=== PATIENT | male | born 1950 | race Caucasian/White ===

== ENCOUNTER → 2016-09-15 | Outpatient (CLI) | payer OTHER ==
[~2016-09-15] MED LIST: ACYC800T PO; CHOL50006; DYAZ37.52 PO; GLUC1CAP9; OMEG100010; OMEGCAP21 PO; TRIA37.53 PO; VITA400C28 PO; ZOVI800T13 PO
== END ==
LOC: CLAB 07:59
DX: Z85.46 Personal history of malignant neoplasm of prostate (principal); Z92.3 Personal history of irradiation
CPT/HCPCS: 84153

== ENCOUNTER → 2016-11-12 | Outpatient (CLI) | payer OTHER ==
[~2016-11-12] MED LIST changes: -DYAZ37.52 PO; -OMEGCAP21 PO; -VITA400C28 PO; -ZOVI800T13 PO
[2016-11-12 14:25] LABS: BLOOD, URINE NEG (NEG); GLUCOSE,URINE NEG (NEG); KETONE, URINE NEG (NEG); NITRITE,URINE NEG (NEG); URINE COLOR LIGHT-YELLOW (YELLW/STRAW)
== END ==
LOC: CLAB 14:00
PROVIDERS: ATTEND Urology
DX: R31.0 Gross hematuria (principal)
CPT/HCPCS: 81001

== ENCOUNTER → 2017-03-12 | Outpatient (CLI) | payer OTHER | LOC: CLAB 08:34 | PROVIDERS: ATTEND Family Medicine | DX: C61 Malignant neoplasm of prostate (principal) | CPT/HCPCS: 36415; 84153 ==

== ENCOUNTER → 2017-06-04 | Outpatient (CLI) | payer OTHER ==
[2017-06-04 13:54] LABS: HEMOGLOBIN A1a 1.1 %; HEMOGLOBIN A1b 0.8 %; HEMOGLOBIN Ao 85.7 %; HEMOGLOBIN F 0.9 %; HEMOGLOBIN LA1C 2.1 %; HEMOGLOBIN P3 3.6 %
[2017-06-04 13:57] LABS: HDL CHOLESTEROL 81.3 MG/DL (40.0-60.0); LDL CHOLESTEROL 168 MG/DL (0-99)
== END ==
LOC: CLAB 12:32
PROVIDERS: ATTEND Family Medicine
DX: E78.5 Hyperlipidemia, unspecified (principal); R73.9 Hyperglycemia, unspecified; Z85.46 Personal history of malignant neoplasm of prostate
CPT/HCPCS: 36415; 80061; 83036; 84153

== ENCOUNTER → 2017-09-18 | Outpatient (CLI) | payer OTHER ==
[~2017-09-18] MED LIST changes: -CHOL50006; +VITA1000 PO
== END ==
LOC: CLAB 13:16
PROVIDERS: ATTEND Urology
DX: Z85.46 Personal history of malignant neoplasm of prostate (principal)
CPT/HCPCS: 36415; 84153

== ENCOUNTER → 2017-10-08 | Outpatient (CLI) | payer OTHER ==
[2017-10-08 13:38] LABS: BILIRUBIN, URINE NEG (NEG); BLOOD, URINE NEG (NEG); GLUCOSE,URINE NEG (NEG); KETONE, URINE NEG (NEG); MUCUS URINE FEW /lpf (OCC); NITRITE,URINE NEG (NEG); URINE COLOR YELLOW (YELLW/STRAW); URINE LEUKOCYTE ESTERASE NEG (NEG)
== END ==
LOC: CLAB 13:06
PROVIDERS: ATTEND Urology
DX: R31.21 Asymptomatic microscopic hematuria (principal)
CPT/HCPCS: 81001

== ENCOUNTER → 2017-12-17 | Outpatient (CLI) | payer OTHER ==
[2017-12-17 12:05] LABS: AUTOMATED NEUTROPHIL # 2.1 TH/MM3 (1.8-7.7); BASOPHIL % 0.4 % (0.0-2.0); EOSINOPHIL % 0.7 % (0.0-4.0); HEMATOCRIT 43.9 % (39.0-51.0); LYMPH % 30.9 % (9.0-44.0); LYMPHOCYTE # 1.2 TH/MM3 (1.0-4.8); MEAN CELL VOLUME 92.7 FL (80.0-100.0); MEAN CORPUSCULAR HEMOGLOBIN 31.7 PG (27.0-34.0); MEAN CORPUSCULAR HGB CONC 34.2 % (32.0-36.0); MEAN PLATELET VOLUME 8.4 FL (7.0-11.0); MONO % 11.6 % (0.0-8.0); MONOCYTE # 0.4 TH/MM3 (0-0.9); NEUT % 56.4 % (16.0-70.0); PLATELET COUNT 179 TH/MM3 (150-450); RED BLOOD COUNT 4.74 MIL/MM3 (4.50-5.90); RED CELL DISTRIBUTION WIDTH 13.1 % (11.6-17.2); WHITE BLOOD COUNT 3.8 TH/MM3 (4.0-11.0)
[2017-12-17 12:25] LABS: AST (GOT) 20 U/L (15-37); BICARBONATE 24.7 MEQ/L (21.0-32.0); BLOOD UREA NITROGEN 19 MG/DL (7-18); CALCIUM 8.8 MG/DL (8.5-10.1); CHLORIDE 107 MEQ/L (98-107); CREATININE 1.18 MG/DL (0.60-1.30); DIRECT BILIRUBIN ADULT 0.2 MG/DL (0.0-0.2); GLOMERULAR FILTRATION RATE 62 ML/MIN (>89); GLUCOSE,FASTING 95 MG/DL (74-99); SODIUM (NA) 141 MEQ/L (136-145)
[2017-12-17 12:26] LABS: ALT (GPT) 31 U/L (12-78); CHOLESTEROL 226 MG/DL (120-200)
[2017-12-17 12:52] LABS: ALKALINE PHOSPHATASE 49 U/L (45-117); CHOLESTEROL/ HDL RATIO 3.13 RATIO; INDIRECT BILIRUBIN 0.8 MG/DL (0.0-0.8); LDL CHOLESTEROL 139 MG/DL (0-99); TOTAL PROTEIN 7.3 GM/DL (6.4-8.2); TRIGLYCERIDES 73 MG/DL (42-150)
[2017-12-17 16:34] LABS: HEMOGLOBIN A1C 5.1 % (4.3-6.0)
[2017-12-18 04:53] LABS: PSA, FREE <0.1 ng/mL
== END ==
LOC: CLAB 11:27
PROVIDERS: ATTEND Family Medicine
DX: I10 Essential (primary) hypertension (principal); E78.5 Hyperlipidemia, unspecified; R31.9 Hematuria, unspecified
CPT/HCPCS: 36415; 80048; 80061; 80076; 82306; 82607; 83036; 84153; 84154; 84443; 85025

== ENCOUNTER → 2017-12-21 | Outpatient (CLI) | payer OTHER ==
[~2017-12-21] VITALS: Ht 172.7 cm; Wt 72.2 kg
[~2017-12-21] MED LIST changes: +CHLORHEXIDINE GLUCONATE 2 % 1 PACK (2 CLOTHS) TOPICAL PRN; +DEXAMETHASONE SOD PHOS 4 MG/ML VIAL IV ONE; -GLUC1CAP9; +GLYCOPYRROLATE 1 MG/5 ML SYRINGE IV PUSH ONE; +LACTATED RINGER'S 1000 ML IV PRN; +LIDOCAINE HCL 1% PF 5 ML SYRINGE OTHER ONE; +METOPROLOL TARTRATE 25 MG TAB PO PRN; +NEOSTIGMINE 5 MG/5 ML SYRINGE IV PUSH ONE; -OMEG100010; +ONDANSETRON HCL 4 MG/2 ML VIAL IV ONE; +PHENYLEPH/NS 1000 MCG/10 ML SYR IV ONE; +POVIDONE IODINE 5% (ANTISEPSIS KIT) 4 APPLICATIONS EACH NARE PRN; +PROPOFOL 200 MG/20 ML AMP IV ONE; +ROCURONIUM INJ 50 MG/5 ML SYRINGE IV PUSH ONE; +SODIUM CHLORID 0.9% 500 ML IV PRN; +ePHEDrine/NS 25 MG/5 ML SYRINGE IV ONE
[2017-12-21 09:40] VITALS: BP_DIAS 64; TEMP 96.9
--- NOTE | 2017-12-21 09:41 | GIPROC ---
[facility] [address] [facility]. [facility], [address] COLONOSCOPY PROCEDURE REPORT EXAM DATE: 12/21/2017 PATIENT NAME: Bob De La Cruz MR #: [id number] BIRTHDATE: 1950 ENDOSCOPIST: uSrjit Shah MD ORDER #: [id number] [employer]: [employer] STATUS: outpatient INDICATIONS: The patient is a 67 yr old male here for a colonoscopy due to altered bowel habits, with more freqent stool; better with resumption of the lactose free diet. Also, red blood per rectum with wiping, occasionally. History of radiation therapy for prostate cancer. No personal or family history of colorectal neoplasia. PROCEDURE PERFORMED: Colonoscopy with APC of radiation telangiectasias. MEDICATIONS: Per Anesthesia. PREP QUALITY: excellent ESTIMATED BLOOD LOSS: None CONSENT: The patient understands the risks and benefits of the procedure and understands that these risks include, but are not limited to: sedation, allergic reaction, infection, perforation and/or bleeding. Alternative means of evaluation and treatment include, among others: physical exam, x-rays, and/or surgical intervention. The patient elects to proceed with this endoscopic procedure. medical equipment was checked for proper function. Hand hygiene and appropriate measures for infection prevention was taken. After the risks, benefits and alternatives of the procedure were thoroughly explained, Informed consent was verified, confirmed and timeout was successfully executed by the treatment team. A digital exam was performed and revealed no abnormalities of the rectum The Pentax [id number] endoscope was introduced through the anus and advanced to the cecum, which was identified by both the appendix and ileocecal valve. The instrument was then slowly withdrawn as the colon was fully examined. COLON FINDINGS: The colonic mucosa appeared normal. Random biopsies were taken to check for microscopic colitis. 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 The scope was then completely withdrawn from the patient and the procedure terminated. ADVERSE EVENTS: There were no complications. IMPRESSIONS: 1. The colonic mucosa appeared normal; random biopsies were taken. 2. Radiation telangiectasias; treated with APC 3. Retroflexion was performed RECOMMENDATIONS: Low fiber diet for one week, then high fiber diet. RECALL: Return 10 years Colonoscopy Surjit Shah MD eSigned: Surjit Shah MD 12/21/2017 9:41 AM cc: Odin Soto M.D. PATIENT NAME: Bob De La Cruz MR#: [id number]
[2017-12-21 10:44] VITALS: PULSE 60; RESP 18; O2SAT 98
--- NOTE | 2017-12-21 22:46 | EKG ---
Date Performed: 12/21/2017 Time Performed: 07:27:07 PTAGE: 67 years EKG: Sinus rhythm NON-SPECIFIC ST/T WAVE CHANGES PREVIOUS TRACING : 09/07/2014 08.27 Since the previous tracing, no significant change not ed DOCTOR: Rick Olivares Interpretating Date/Time 12/21/2017 22:44:23
== END ==
LOC: HSDC 06:51
DX: K62.89 Other specified diseases of anus and rectum (principal); R19.4 Change in bowel habit; K62.5 Hemorrhage of anus and rectum; Z85.46 Personal history of malignant neoplasm of prostate; Z92.3 Personal history of irradiation; I10 Essential (primary) hypertension
CPT/HCPCS: 00811; 45380; 45382; 88305; 93005; J7120; J1100; J2370; J2405; J2710